=== PATIENT | male | born 1990 | race Native Hawaiian/Other Pacific Islander ===

== ENCOUNTER 2021-06-11 22:47 | Inpatient (IN) | payer BC ==
[~2021-06-11] VITALS: Ht 165.1 cm; Wt 112.5 kg
[2021-06-11 22:52] VITALS: BP 192/118; TEMP 98.4
[2021-06-11] MEDS ORDERED: ENTRESTO 24-261 TAB PO (23:12)
[2021-06-11] MEDS ORDERED: CARV3.12 PO (23:12)
[2021-06-11 23:24] LABS: PLATELET COUNT 296 K/uL (142-355)
[2021-06-11 23:30] VITALS: BP 161/107
[2021-06-11 23:43] LABS: POTASSIUM 3.5 mmol/L (3.6-5.2)
[2021-06-11 23:45] LABS: PARTIAL THROMBOPLASTIN TIME 26.3 SECONDS (24.5-33.6)
[2021-06-11 23:46] VITALS: BP 193/118
[2021-06-11 23:58] VITALS: BP 132/86
[2021-06-12] VITALS (9 sets, daily range): BP systolic 96–168; BP diastolic 46–105; TEMP 97.2–98.3; Ht 165.1 cm; Wt 112.5 kg
--- NOTE | 2021-06-12 01:25 | NUR ---
0110 PT ARRIVED TO MED/SURG FLOOR VIA WHEELCHAIR, A&O*4. RESP. EVEN AND UNLABORED. PATIENT VOICES NO COMPLAINTS OF PAIN BUT REPORT MILD DISCOMFORT RELATED TO ROOM BEING COLD. PT ORIENTED TO ROOM AND CALL LIGHT. PT AMBULATED WITHOUT COMPLICATIONS HAS STEADY GAIT. FULL ROM NOTED, NO INJURIES NOTED, CONTINENT OF BOWEL AND BLADDER. PT ON O2 AT 2L VIA NC INTACT AT PRESENT. TELEMETRY APPLYED, 20G TO RFA INTACT AND PATENT. PT COVID NEG. HAS HX OF CHF, HTN. PT ADMITTED TO RULE OUT [place]. CHIEF COMPLAINT SOB., CHEST PAIN. PT FULL CODE. NO DISTRESS NOTED AT PRESENT WILL CONTINUE TO MONITOR.
[2021-06-12] MEDS ORDERED: CARV25TA PO (03:46)
--- NOTE | 2021-06-12 10:46 | NUR ---
PT RESTING QUIETLY WITH EYES CLOSED. C/O HEADACHE, ADMINISTERED TYLENOL ORDERED. CONSULTED WITH HCP AND ORDER TO REMOVE NITRO PASTE AND D/C AND BEGIN NITRO PO 0.4 MG SL Q5MIN FOR CP. PT DENIES ANY CURRENT CHEST PAIN/DISCOMFORT. IV SITE TO RFA INTACT WITH NO SWELLING OR REDNESS NOTED AND FLUSHES WITH NO DIFFICULTY. NO DISTRESS NOTED. AM MEDS ADMINISTERED ORDERED AND PT TOLERATED WELL WITH NO DIFFICULTIES SWALLOWING.
--- NOTE | 2021-06-12 13:45 | NUR ---
PT C/O N/V AND HEADACHE, ADMINISTERED ZOFRAN AND HYDROCODONE ORDERED. SPOKE WITH PTS TO GIVE UPDATE ON PTS STATUS. PT ALERT AND AWAKE. STATED "I'M STARTING TO FEEL MY HEADACHE EASE OFF AND I'M NOT NAUSEATED RIGHT NOW." CONTINUE TO MONITOR
--- NOTE | 2021-06-12 17:54 | NUR ---
PTS TROPONIN LEVEL ELEVATED. PT DENIES ANY CHEST PAIN/DISCOMFORT, N/V OR HEADACHE. PT AMBULATES TO BATHROOM. NO DISTRESS NOTED. IV SITE TO RFA INTACT WITH NO SWELLING OR REDNESS NOTED. PT A&O X4. APPETITE ADEQUATE. PT SITTING UP IN BED WATCHING TV.
--- NOTE | 2021-06-12 20:13 | NUR ---
Pt c/o diarrhia. Noted loose stool in toilet. States he has had loose bowel movements at lease 6 or 7 times today. New order received for tereso and carried out.
[2021-06-13 00:07] VITALS: BP 467/104; TEMP 98.2
--- NOTE | 2021-06-13 03:38 | NUR ---
Pt had c/o severe headache earlier this shift. BP noted to be elevated at 168/105. Pt given [place] 5/325 with relief noted within 30 min. BP had dropped to 150/88. Pt later c/o BLE pain. Pt medicated with MS 2mg IV at 0101 with relief noted within 20 min. Pt resting at this time with eyes closed and no further c/o voiced. Call light in easy reach.
[2021-06-13 04:00] VITALS: BP 148/92; TEMP 98
[2021-06-13 04:30] LABS: PLATELET COUNT 271 K/uL (142-355)
[2021-06-13 04:57] LABS: POTASSIUM 3.5 mmol/L (3.6-5.2)
[2021-06-13 08:00] VITALS: BP 154/102; TEMP 98.1
[2021-06-13 12:00] VITALS: BP 120/65; TEMP 98.3
--- NOTE | 2021-06-13 12:19 | NUR ---
PT AWAKE AND ALERT IN BED. PT C/O DIARRHEA AND GIVEN MED ORDERED. PT TOOK A SHOWER, IV SITE TO RFA INTACT AND WAS COVERED FOR PT TO TAKE SH0WER. BED LINEN CHANGED. PT C/O NAUSEA AFTER LUNCH AND WAS GIVEN ZOFRAN ORDERED. NO C/O CHEST PAIN/DISCOMFORT. AFTER PT TOOK SHOWER, IV SITE UNCOVERED AND NO REDNESS OR SWELLING AT SITE AND FLUSHES WITH NO DIFFICULTY. PTS TROPONIN LEVEL INCREASED 0.14. HCP ORDERED REPEAT TROPONIN LEVEL AND EKG FOR LATER TODAY.
[2021-06-13 16:00] VITALS: BP 103/52; TEMP 98.1
[2021-06-13] MEDS ORDERED: ASPIRIN ADULT325 MG PO (17:49)
--- NOTE | 2021-06-13 18:26 | NUR ---
PT DISCHARGED TO GO HOME. PT WILL F/U WITH PRIMARY MACHINE STAPLER SCHEDULED, PT WILL CALL IN AM AND MAKE APPOINTMENT. IV SITE TO RFA D/C'D. DISCHARGED INSTRUCTIONS GIVEN TO PT AND PT VERBALIZED UNDERSTANDING. PT HAD NO C/O N/V, DIARRHEA OR CHEST PAIN. PT WILL RESUME HOME MEDS ORDERED BY PCP. TELEMETRY D/C'D. PT TRANSPORTED OUT OF FACILITY AT 1820 VIA WHEELCHAIR. SPOUSE AWAITING TO TAKE PT HOME.
--- NOTE | 2021-06-14 08:35 | NUR ---
Discharged home prior to discharge planning being done.
== END 2021-06-13 18:20 | disposition home or self-care (01) | DRG 280 ==
LOC: ED 22:47 → MED/SURG 06-12 00:30
PROVIDERS: Hospitalist; ADMIT Internal Medicine Endocrinology, Diabetes & Metabolism; ATTEND Internal Medicine Endocrinology, Diabetes & Metabolism
DX: I21.4 Non-ST elevation (NSTEMI) myocardial infarction (principal); I50.33 Acute on chronic diastolic (congestive) heart failure; Z68.41 Body mass index [BMI] 40.0-44.9, adult; E66.01 Morbid (severe) obesity due to excess calories; E87.6 Hypokalemia; I11.0 Hypertensive heart disease with heart failure; I25.10 Atherosclerotic heart disease of native coronary artery without angina pectoris
CPT/HCPCS: 36415; 80048; 80053; 82550; 83880; 84484; 85027; 85379; 85610; 85730; 87635; 93005; 96374; 96375; 99284; J0360; J1650; J1940; J2270; J2405; J3490; U0003

== ENCOUNTER 2021-06-23 18:34 | Inpatient (IN) | payer OTHER ==
[2021-06-23] VITALS (8 sets, daily range): BP systolic 112–144; BP diastolic 71–92; TEMP 98–98.7
[~2021-06-23] VITALS: Ht 165.1 cm; Wt 107.7 kg
[~2021-06-23 18:34] MED LIST: ASPIRIN ADULT325 MG PO; CARV25TA PO; CARV3.12 PO; ENTRESTO 24-261 TAB PO
[2021-06-23 19:19] LABS: PLATELET COUNT 159 K/uL (142-355)
[2021-06-23 19:24] LABS: POTASSIUM 3.3 mmol/L (3.6-5.2)
[2021-06-23 20:45] LABS: PARTIAL THROMBOPLASTIN TIME 30.4 SECONDS (24.5-33.6)
[2021-06-24] VITALS: BP 125/60; TEMP 99.6
[2021-06-24 00:27] VITALS: BP 134/80; TEMP 100.6; Ht 165.1 cm; Wt 107.7 kg
--- NOTE | 2021-06-24 01:40 | NUR ---
06/23/212115: PT ARRIVED FROM ER BY WHEELCHAIR. PT ALERT,ORIENTED X4. PT DOES NOT HAVE ON OXYGEN AND NO RESPIRATORY DISTRESS NOTED.
[2021-06-24 04:00] VITALS: BP 123/76; TEMP 97.8
--- NOTE | 2021-06-24 09:30 | NUR ---
Pt. MOVING IN ROOM EXERCISING. HIGH FLOW INTACT.
[2021-06-24 20:00] VITALS: BP 122/78; TEMP 97.8
[2021-06-25 00:09] VITALS: BP 119/73; TEMP 98.6
[2021-06-25 04:00] VITALS: BP 122/78; BP 134/91; TEMP 97.8; TEMP 99
--- NOTE | 2021-06-25 04:35 | NUR ---
PT RESTING QUIETLY IN BED ALERT AND ORIENTED*4. ABLE TO MA KE NEED KNOWN. PT TRANSFERS WITHOUT COMPLICATION. PT AMBULATED WITHOUT COMPLICATION. PT ACCEPTED ALL HS MEDICATION. PT COMPLAINED OF PAIN TO RT HAND RELATED TO IV SITE. SITE NOTED TO BE TENDER AND RED. IV DC'D AND 20G PLACED IN LEFT UPPER FOREARM. PT TOLERATED WELL. PT VOICED NO DISTRESS AT PRESENT WILL CONTINUR TO MONITOR.
[2021-06-25 08:00] VITALS: BP 128/102; TEMP 100.1
--- NOTE | 2021-06-25 11:13 | NUR ---
PT AWAKE AND ALERT. C/O PAIN R/T DIAGNOSIS. DENIES ANY CHEST PAIN/DISCOMFORT. ADMINISTERED PAIN MED ORDERED. PT HAD INCREASED TDLS=323.1,ADMINISTERED ACETAMINOPHEN ORDERED. PT STATED HE HAS DECREASED APPETITE R/T DX, ENCOURGAGED PT TO INCREASE FLUID INTAKE. PLACED VARIOUS JUICES AT BEDSIDE. PT STATED HE HAS HAD VERY LITTLE URINE OUTPUT SINCE ADMITTED. WILL MONITOR OUTPUT, INSTRUCTED PT TO USE URINAL AND DO NOT FLUSH UNTIL MEASURED BY [facility]. PT DOES NOT HAVE O2 INTACT AND SATS=99% ON ROOM AIR.
[2021-06-25 12:00] VITALS: BP 108/62; TEMP 98
[2021-06-25 16:00] VITALS: BP 145/72; TEMP 97.9
--- NOTE | 2021-06-25 17:38 | NUR ---
PT AWAKE AND LAYING BED TALKING ON CELLPHONE. ENCOURAGED PT TO GET OUT OF BED AND WALK AROUND IN ROOM WITH A STEADY GAIT. DENIES ANY PAIN/DISCOMFORT AT PRESENT TIME. ENCOURAGED PT TO INCREASE FLUID INTAKE. PT ED ON USE OF INHALERS AND INCENTIVE SPIROMETER AT BEDSIDE. IV SITE TO LFA INTACT WITH NO SWELLING OR REDNESS NOTED. NAD NOTED. PT ALERT AND ORIENTED.
[2021-06-25 20:00] VITALS: BP 117/76; TEMP 99.3
[2021-06-26] VITALS: BP 110/49; TEMP 99.8
[2021-06-26 04:00] VITALS: BP 115/67; TEMP 98.1
[2021-06-26 04:19] LABS: PLATELET COUNT 162 K/uL (142-355)
[2021-06-26 04:36] LABS: POTASSIUM 3.6 mmol/L (3.6-5.2)
[2021-06-26 08:00] VITALS: BP 125/68; TEMP 98.7
[2021-06-26 12:00] VITALS: BP 100/64; TEMP 98.6
--- NOTE | 2021-06-26 14:46 | NUR ---
PT RESTING QUIETLY WITH EYES CLOSED. ADMINISTERED DECADRON ORDERED IN THE AM AND 15-20 MINUTES AFTER ADMINISTRATION OF MED PT CALLED AND REPORTED THAT HE HAD A RASH TO APPEAR ON BILATERAL ARMS. PT HAS MULTIPLE SMALL SPOTS NOTED TO UPPER AND LOWER BILATERAL ARMS. RASH OBSERVED BY HCP AND DECADRON D/C'D. OBTAINED AN ORDER FOR BENADRYL 50MG IV X1 DOSE AND MED ADMINISTERED. NO INCREASE IN RASH/SPOTS SIZE NOTED TO BILATERAL ARMS OR NOTED TO OTHER BODY PARTS. O2 AT 1.5 LPM VIA NC INTACT. PT AMBULATED AROUND IN ROOM IN THE AM. C/O PAIN R/T DX DURING AM MED PASS AND ADMINISTERED PAIN MED ORDERED. NAD NOTED.
[2021-06-26 16:00] VITALS: BP 110/71; TEMP 97.8
--- NOTE | 2021-06-26 19:12 | NUR ---
PT AWAKE AND TALKING ON CELL PHONE. RASH ON BILATERAL ARMS NOTED BUT NO CHANGE, HAVE NOT WORSEN OR IMPROVED. PT DENIES ANY PAIN OR DISCOMFORT. ALLERGY BRACELET WITH "DEXAMETHASONE" INTACT TO PTS WRIST AND UPDATED ON MEDICAL RECORD AND E-MAR.
[2021-06-26 20:00] VITALS: BP 131/67; TEMP 97.7
[2021-06-27 00:20] VITALS: BP 127/79; TEMP 98.1
[2021-06-27 04:29] VITALS: BP 118/71; TEMP 97.3
[2021-06-27 05:37] LABS: POTASSIUM 4.1 mmol/L (3.6-5.2)
--- NOTE | 2021-06-27 06:09 | NUR ---
Pt has rested through the night after taking prn pain med and prn phenergan per request with relief noted. No further c/o voiced. Snacks given at hs as requested. Cont po ABT with no adverse reaction noted. Call light in easy reach.
[2021-06-27 08:00] VITALS: BP 106/61; TEMP 98.1
--- NOTE | 2021-06-27 08:28 | NUR ---
PT LAYING SUPINE IN BED WITH O2 INTACT AT 1.5LPM VIA NC. NAD NOTED. RESTING QUIETLY WITH EYES CLOSED. IV SITE TO LFA INTACT WITH NO SWELLING OR REDNESS NOTED.
[2021-06-27 12:00] VITALS: BP 116/59; TEMP 97.6
[2021-06-27 16:00] VITALS: BP 145/91; TEMP 98.1
--- NOTE | 2021-06-27 17:54 | NUR ---
PT WAS UP SITTING IN CHAIR AFTER LUNCH. ENCOURAGED PT TO GET UP AND WALK AROUND IN ROOM. NO C/O N/V OR PAIN/DISCOMFORT THIS SHIFT. RASH TO BILATERAL ARMS PRESENT BUT INCREASED HEALING NOTED FROM ALLERGIC REACTION TO DEXAMETHASONE THAT WAS ADMINISTERED ON 06/27/21. NAD NOTED. NO VOICED COMPLAINTS THIS SHIFT.
[2021-06-27 20:00] VITALS: BP 106/69; TEMP 97.8
[2021-06-28] VITALS: BP 103/70; TEMP 97.5
[2021-06-28 04:00] VITALS: BP 113/70; TEMP 97.7
[2021-06-28 06:15] LABS: POTASSIUM 3.4 mmol/L (3.6-5.2)
[2021-06-28 08:00] VITALS: BP 132/89; TEMP 97.2
[2021-06-28 12:00] VITALS: BP 108/61; TEMP 97.5
[2021-06-28] MEDS ORDERED: IPRAAER INH (13:13)
--- NOTE | 2021-06-28 14:19 | NUR ---
Patient has a follow up appointment with drop board man Dr. Blayne Chandler [phone] in the [place] office 06/30/21 @ 3:30pm.
--- NOTE | 2021-06-28 15:49 | NUR ---
Hospital Nursing Assistant has constantly request insurance card and he says he has it and his girlfriend will bring. Everytime I would ask if he had gotten it yet he said no. Hospital Nursing Assistant offered him a indigent form and he refused, said he had insurance.
--- NOTE | 2021-06-28 19:05 | NUR ---
REVIEWED DISCHARGE INSTRUCTIONS WITH PATIENT, ALONG WITH FOLLOW UP APPOINTMENTS SCHEDULED ON BEHALF OF PATIENT. PATIENT V/O UNDERSTANDING AND DENIES ANY FURTHER QUESTIONS OR C/O AT THIS TIME. IV D/C'D WITH TIP IN TACT AND TELEMETRY RETURNED TO BLUEPRINT DUPLICATOR. NAD NOTED WITH PATIENT AT THIS TIME. PATIENT REPORTS HE HAS NOT BE ABLE TO FIND ANYONE TO PICK HIM UP AT THIS TIME BUT CONTINUES TO CALL FOR A RIDE.
--- NOTE | 2021-06-30 14:21 | NUR ---
Spoke with Zaina Hampton she said that patient was sleeping. Artisan Plasterer told her that she was calling to inquire about how he was doing since discharging home and was he available to speak to health science writer. She said no he is sleeping, but that he was doing ok just coughing. Artisan Plasterer asked was he not going to his follow up appointment at 3:[address] Blayne Chandler and she said that they had rescheduled the appointment.
== END 2021-06-28 21:00 | disposition home or self-care (01) | DRG 179 ==
LOC: ED 18:34 → MED/SURG 20:25
PROVIDERS: ADMIT Family Medicine; ATTEND Internal Medicine
DX: U07.1 COVID-19 (principal); R07.89 Other chest pain; I11.0 Hypertensive heart disease with heart failure; I50.9 Heart failure, unspecified; E87.6 Hypokalemia; T78.40XA Allergy, unspecified, initial encounter; X58.XXXA Exposure to other specified factors, initial encounter
CPT/HCPCS: 36415; 80053; 82550; 82553; 83880; 84484; 85027; 85610; 85730; 87635; 93005; 94760; 96374; 99284; J1100; J1200; J2270; J2550; J2930; U0003

== ENCOUNTER 2022-04-17 05:00 | Emergency (ER) | payer OTHER ==
[~2022-04-17] VITALS: Ht 165.1 cm; Wt 117.9 kg
[~2022-04-17 05:00] MED LIST changes: +IPRAAER INH
[2022-04-17 05:04] VITALS: TEMP 98.1
[2022-04-17 05:46] LABS: PLATELET COUNT 309 K/uL (142-355)
[2022-04-17 05:52] LABS: POTASSIUM 3.3 mmol/L (3.6-5.2)
[2022-04-17 06:15] LABS: PARTIAL THROMBOPLASTIN TIME 26.1 SECONDS (24.5-33.6)
[2022-04-17 12:10] VITALS: BP 137/92
== END 2022-04-17 12:10 | disposition still patient (30) ==
LOC: ED 05:00
PROVIDERS: Emergency Medicine
DX: J18.9 Pneumonia, unspecified organism (principal); I21.4 Non-ST elevation (NSTEMI) myocardial infarction; I50.9 Heart failure, unspecified; E87.6 Hypokalemia; I10 Essential (primary) hypertension; Z11.52 Encounter for screening for COVID-19
CPT/HCPCS: 36415; 80053; 80307; 83880; 84484; 85027; 85610; 85730; 87040; 87635; 93005; 96365; 96366; 96375; 99284; J0696; J1644; J1940; U0003

== ENCOUNTER 2022-05-22 06:38 | Emergency (ER) | payer OTHER ==
[~2022-05-22] VITALS: Ht 165.1 cm; Wt 117.9 kg
[2022-05-22 06:50] VITALS: TEMP 99.2
[2022-05-22 07:33] LABS: PLATELET COUNT 243 K/uL (142-355)
[2022-05-22 08:15] VITALS: BP 148/88
== END 2022-05-22 08:36 | disposition home or self-care (01) ==
LOC: ED 06:38
PROVIDERS: Family Medicine
DX: N20.0 Calculus of kidney (principal); Z87.442 Personal history of urinary calculi
CPT/HCPCS: 80053; 81000; 82150; 83690; 85027; 96374; 99284; J1885

== ENCOUNTER 2022-06-13 22:51 | Emergency (ER) | payer OTHER ==
[~2022-06-13] VITALS: Ht 165.1 cm; Wt 120.7 kg
[2022-06-14 00:31] LABS: POTASSIUM 3.2 mmol/L (3.6-5.2)
[2022-06-14 00:48] LABS: PLATELET COUNT 266 K/uL (142-355)
[2022-06-14 01:25] VITALS: BP 126/68; TEMP 98.1
== END 2022-06-14 01:25 | disposition home or self-care (01) ==
LOC: ED 22:51
PROVIDERS: Emergency Medicine Emergency Medical Services
DX: N13.2 Hydronephrosis with renal and ureteral calculous obstruction (principal)
CPT/HCPCS: 36415; 80053; 81000; 85027; 96360; 96374; 96375; 99284; J1885; J2270; J2405

== ENCOUNTER 2023-06-01 14:14 | Emergency (ER) | payer OTHER ==
[~2023-06-01] VITALS: Ht 165.1 cm; Wt 127.0 kg
[2023-06-01 14:14] VITALS: TEMP 98.1
[2023-06-01 14:43] LABS: PLATELET COUNT 263 K/uL (142-355)
[2023-06-01 14:52] LABS: POTASSIUM 3.8 mmol/L (3.6-5.2)
[2023-06-01 16:35] LABS: PARTIAL THROMBOPLASTIN TIME 33.9 SECONDS (23.9-36.7)
[2023-06-01 17:06] VITALS: BP 134/72
== END 2023-06-01 17:06 | disposition short-term general hospital (02) ==
LOC: ED 14:14
PROVIDERS: Family Medicine
DX: I20.0 Unstable angina (principal); I50.9 Heart failure, unspecified; R00.0 Tachycardia, unspecified; I10 Essential (primary) hypertension; E66.9 Obesity, unspecified
CPT/HCPCS: 80053; 80307; 81002; 83880; 84484; 85027; 85610; 85730; 93005; 96365; 99285; J1644